=== PATIENT | female | born 1940 | race Caucasian/White ===

== ENCOUNTER → 2018-07-21 13:09 | Outpatient (CLI) | payer MEDICARE, BC | END | disposition home or self-care (01) | LOC: D.CT 13:09 | DX: R10.9 Unspecified abdominal pain (principal) ==

== ENCOUNTER → 2018-12-08 15:57 | Outpatient (CLI) | payer MEDICARE, BC ==
[2018-12-08 16:53] LABS: C-REACTIVE PROTEIN 3.4 mg/dL (0.0-0.9); URIC ACID 3.9 mg/dL (2.6-7.2)
[2018-12-08 17:48] LABS: ERYTHROCYTE SEDIMENTATION RATE 11 mm/hr (0-30)
== END | disposition home or self-care (01) ==
LOC: D.LAB 15:57
PROVIDERS: ATTEND Nurse Practitioner Family
DX: M25.50 Pain in unspecified joint (principal)